=== PATIENT | male | born 1970 | race Caucasian/White ===

== ENCOUNTER → 2016-10-20 | Outpatient (CLI) | payer OTHER ==
--- NOTE | 2016-10-21 08:12 | RAD ---
EXAM DESCRIPTION: Right knee series. CLINICAL HISTORY: Right knee pain. COMPARISON: None. TECHNIQUE: Three views of the right knee are submitted for interpretation. FINDINGS: Medial compartment joint space loss.There is no fracture, dislocation, obvious joint effusion or suspicious radiopaque foreign body. Soft tissues are unremarkable. IMPRESSION: Degenerative change noted within the medial compartment of right knee with joint space loss. Electronically signed by: Gen Majano MD 10/21/2016 08:10
== END ==
LOC: YCFC.O 13:35
PROVIDERS: ATTEND Nurse Practitioner Family
DX: M25.561 Pain in right knee (principal); M12.861 Other specific arthropathies, not elsewhere classified, right knee

== ENCOUNTER → 2016-11-06 | Outpatient (CLI) | payer OTHER | LOC: YCFC.O 08:25 | PROVIDERS: ATTEND Nurse Practitioner Family | DX: E11.65 Type 2 diabetes mellitus with hyperglycemia (principal); I10 Essential (primary) hypertension; E78.5 Hyperlipidemia, unspecified ==

== ENCOUNTER → 2017-02-19 | Outpatient (CLI) | payer BC | LOC: YCFC.O 09:41 | PROVIDERS: ATTEND Nurse Practitioner Family | DX: E11.65 Type 2 diabetes mellitus with hyperglycemia (principal); N19 Unspecified kidney failure ==

== ENCOUNTER → 2017-09-02 | Outpatient (CLI) | payer BC | END | disposition home or self-care (01) | LOC: YCFC.O 09:57 | DX: E11.65 Type 2 diabetes mellitus with hyperglycemia (principal) ==

== ENCOUNTER → 2018-01-08 | Outpatient (CLI) | payer BC | LOC: LAB.O 07:15 | DX: I10 Essential (primary) hypertension (principal); E78.5 Hyperlipidemia, unspecified; E11.65 Type 2 diabetes mellitus with hyperglycemia; E66.01 Morbid (severe) obesity due to excess calories ==

== ENCOUNTER → 2018-04-27 | Outpatient (CLI) | payer BC | LOC: YCFC.O 07:09 | DX: I10 Essential (primary) hypertension (principal); E11.65 Type 2 diabetes mellitus with hyperglycemia ==

== ENCOUNTER → 2018-07-24 | Outpatient (CLI) | payer BC | LOC: YCFC.O 09:44 | DX: E11.65 Type 2 diabetes mellitus with hyperglycemia (principal); I10 Essential (primary) hypertension ==

== ENCOUNTER → 2018-10-08 | Outpatient (CLI) | payer BC | LOC: LAB.O 08:06 | PROVIDERS: ATTEND Family Medicine | DX: R53.83 Other fatigue (principal); E78.5 Hyperlipidemia, unspecified; I10 Essential (primary) hypertension; E11.65 Type 2 diabetes mellitus with hyperglycemia; Z12.5 Encounter for screening for malignant neoplasm of prostate ==

== ENCOUNTER → 2019-01-08 | Outpatient (CLI) | payer BC | LOC: YCFC.O 07:05 | PROVIDERS: ATTEND Family Medicine | DX: E11.65 Type 2 diabetes mellitus with hyperglycemia (principal); I10 Essential (primary) hypertension ==

== ENCOUNTER → 2019-04-30 | Outpatient (CLI) | payer BC | LOC: YCFC.O 08:16 | PROVIDERS: ATTEND Family Medicine | DX: E11.9 Type 2 diabetes mellitus without complications (principal); I10 Essential (primary) hypertension ==

== ENCOUNTER → 2019-05-31 | Outpatient (CLI) | payer BC ==
--- NOTE | 2019-05-31 10:26 | US ---
EXAM DESCRIPTION: Renal: Ultrasound. CLINICAL HISTORY: 49 years Male CHRONIC KIDNEY DISEASE COMPARISON: None TECHNIQUE: Transcutaneous scanning: Two-dimensional and Doppler modes. FINDINGS: Right kidney measures 9.7 x 5.1 x 5.1 cm; mid-renal cortical thickness normal . Normal echogenicity. No hydronephrosis No echogenic stones. Smooth contour of the kidney with no perinephric fluid. Normal vascularity. Proximal ureter not visualized. Left kidney measures 9.8 x 5.7 x 5.3 cm; mid-renal cortical thickness normal.. Normal echogenicity. No hydronephrosis. No echogenic stones. Minimally lobulated contour of the kidney with no perinephric fluid. Normal vascularity.. Proximal ureter not visualized. Urinary bladder not visualized. Abdominal aorta: not measured. IMPRESSION: 1. Bilateral kidneys smaller limits of normal with normal cortical thickness and echogenicity. Minimal lobulation of the left renal capsule. No echogenic stones, no hydronephrosis, no perinephric fluid. 2. Urinary bladder was not visualized. Electronically signed by: Kieran Wilkinson MD 05/31/2019 10:24 AM CDT
== END ==
LOC: US 07:45
PROVIDERS: ATTEND Internal Medicine Nephrology
DX: N18.4 Chronic kidney disease, stage 4 (severe) (principal)

== ENCOUNTER → 2019-08-13 | Outpatient (CLI) | payer BC | LOC: LAB.O 09:34 | PROVIDERS: ATTEND Family Medicine | DX: E11.65 Type 2 diabetes mellitus with hyperglycemia (principal); I10 Essential (primary) hypertension ==

== ENCOUNTER → 2019-11-05 | Outpatient (CLI) | payer BC | LOC: YCFC.O 08:59 | PROVIDERS: ATTEND Family Medicine | DX: E11.9 Type 2 diabetes mellitus without complications (principal); I10 Essential (primary) hypertension; E78.5 Hyperlipidemia, unspecified ==

== ENCOUNTER → 2020-01-14 | Outpatient (CLI) | payer BC | LOC: LAB.O 08:53 | PROVIDERS: ATTEND Family Medicine | DX: I10 Essential (primary) hypertension (principal); E78.5 Hyperlipidemia, unspecified; R53.83 Other fatigue; Z12.5 Encounter for screening for malignant neoplasm of prostate ==

== ENCOUNTER → 2020-02-21 | Outpatient (CLI) | payer BC | LOC: YCFC.O 15:10 | PROVIDERS: ATTEND Family Medicine | DX: E11.65 Type 2 diabetes mellitus with hyperglycemia (principal); E78.5 Hyperlipidemia, unspecified ==

== ENCOUNTER → 2020-06-02 | Outpatient (CLI) | payer BC | LOC: YCFC.O 08:50 | PROVIDERS: ATTEND Family Medicine | DX: E11.9 Type 2 diabetes mellitus without complications (principal); E78.5 Hyperlipidemia, unspecified; I10 Essential (primary) hypertension ==

== ENCOUNTER → 2020-08-25 | Outpatient (CLI) | payer BC | LOC: YCFC.O 08:26 | PROVIDERS: ATTEND Family Medicine | DX: E11.9 Type 2 diabetes mellitus without complications (principal); I10 Essential (primary) hypertension ==

== ENCOUNTER → 2020-08-29 | Outpatient (CLI) | payer BC | LOC: YCFC.O 14:49 | PROVIDERS: ATTEND Family Medicine | DX: Z03.818 Encounter for observation for suspected exposure to other biological agents ruled out (principal) ==

== ENCOUNTER → 2020-11-29 | Outpatient (CLI) | payer BC | LOC: YCFC.O 07:34 | PROVIDERS: ATTEND Family Medicine | DX: E11.9 Type 2 diabetes mellitus without complications (principal); I10 Essential (primary) hypertension; E78.5 Hyperlipidemia, unspecified ==